=== PATIENT | male | born 1945 | race Caucasian/White ===

== ENCOUNTER 2018-03-17 12:29 | Observation (INO) | payer OTHER, MEDICARE ==
[~2018-03-17] VITALS: Ht 185.4 cm; Wt 104.7 kg
[~2018-03-17 12:29] MED LIST: ASPI81EC PO; DIPASPER PO; EZET10 PO; OMEP20ER PO
[2018-03-17] MEDS ORDERED: ASPI81CH PO (12:43)
[2018-03-17] MEDS ORDERED: ATEN25 PO (12:44)
[2018-03-17] MEDS ORDERED: PRAV20 PO (12:44)
[2018-03-17 17:11] LABS: BASOPHILS ABSOLUTE AUTO 0.02 K/mm3 (0.00-0.23); BASOPHILS PERCENT AUTO 0 % (0-2); EOSINOPHILS ABSOLUTE AUTO 0.02 K/mm3 (0.00-0.68); EOSINOPHILS PERCENT AUTO 0 % (0-6); Hematocrit 46.3 % (37.0-53.0); Hemoglobin 15.2 g/dL (13.5-17.5); IMMATURE GRAN ABSOLUTE AUTO 0.05 K/mm3 (0.00-0.10); IMMATURE GRAN PERCENT AUTO 0 % (0-1); LYMPHOCYTES ABSOLUTE AUTO 0.79 K/mm3 (0.84-5.20); LYMPHOCYTES PERCENT AUTO 5 % (21-46); MONOCYTES PERCENT AUTO 9 % (4-13); Mean Corpuscular HGB 32.5 pg (26.0-34.0); Mean Corpuscular HGB Conc 32.8 g/dL (31.5-36.5); Mean Corpuscular Volume 99 fL (80-100); Mean Platelet Volume 10.1 fL (9.1-12.4); NEUTROPHILS ABSOLUTE AUTO 12.91 K/mm3 (1.96-9.15); NEUTROPHILS PERCENT AUTO 85 % (41-73); Platelet Count 195 K/mm3 (150-400); RDW Coefficient Variation 11.6 % (11.7-14.2); RDW Standard Deviation 42.1 fL (35.1-46.3); Red Blood Cell Count 4.67 M/mm3 (4.30-5.90); White Blood Cell Count 15.19 K/mm3 (4.00-11.30)
[2018-03-17 17:44] LABS: Alanine Aminotransfer (ALT/SGP 152 U/L (12-78); Albumin/Globulin Ratio 1.1 (0.8-1.8); Alk Phos 102 U/L (50-136); Anion Gap 8 mmol/L (6-16); Aspartate Aminotrans (AST/SGOT 194 U/L (12-37); Blood Urea Nitrogen 12 mg/dL (8-24); Bun/Creatinine Ratio 17.3 (12.0-20.0); CO2, Blood 27 mmol/L (21-32); Calcium, Blood 8.8 mg/dL (8.5-10.1); Chloride, Blood 99 mmol/L (98-108); Globulin, Blood 3.7 g/dL (2.2-4.0); Glomerular Filtration Rate >60 (60-); Glucose, Blood 111 mg/dL (70-99); Potassium, Blood 3.9 mmol/L (3.5-5.5); Sodium, Blood 134 mmol/L (136-145); Total Protein, Blood 7.7 g/dL (6.4-8.2); Troponin I <0.015 ng/mL (0.000-0.040)
--- NOTE | 2018-03-17 17:51 | NUR ---
PT ADMITTED TODAY FROM ER. PT IS TO HAVE SURGERY TOMM. MORNING. PT WILL BE NPO @ MIDNIGHT. CURRRENTLY PT GIVEN CLEAR LIQUID DIET. (CHRIS) AT BEDSIDE , NAME AND NUMBER ON WHITE BOARD. ADMISSION COMPLETE. PT C/O PAIN X1 IN SHOULDER AND ABD, MEDICATED PER EMAR. WILL CTM UNTIL PRESUMED BY ONCOMING NURSE.
[2018-03-18 05:14] LABS: BASOPHILS ABSOLUTE AUTO 0.02 K/mm3 (0.00-0.23); BASOPHILS PERCENT AUTO 0 % (0-2); EOSINOPHILS PERCENT AUTO 0 % (0-6); Hematocrit 45.5 % (37.0-53.0); Hemoglobin 14.8 g/dL (13.5-17.5); IMMATURE GRAN ABSOLUTE AUTO 0.06 K/mm3 (0.00-0.10); IMMATURE GRAN PERCENT AUTO 0 % (0-1); LYMPHOCYTES ABSOLUTE AUTO 1.02 K/mm3 (0.84-5.20); LYMPHOCYTES PERCENT AUTO 7 % (21-46); MONOCYTES ABSOLUTE AUTO 1.63 K/mm3 (0.16-1.47); MONOCYTES PERCENT AUTO 11 % (4-13); Mean Corpuscular HGB 31.7 pg (26.0-34.0); Mean Corpuscular HGB Conc 32.5 g/dL (31.5-36.5); Mean Corpuscular Volume 97 fL (80-100); Mean Platelet Volume 10.3 fL (9.1-12.4); NEUTROPHILS ABSOLUTE AUTO 12.63 K/mm3 (1.96-9.15); NEUTROPHILS PERCENT AUTO 82 % (41-73); Platelet Count 204 K/mm3 (150-400); RDW Coefficient Variation 11.9 % (11.7-14.2); RDW Standard Deviation 43.2 fL (35.1-46.3); Red Blood Cell Count 4.67 M/mm3 (4.30-5.90); White Blood Cell Count 15.36 K/mm3 (4.00-11.30)
--- NOTE | 2018-03-18 05:17 | NUR ---
DID WELL DURING NIGHT. MEDICATED FOR ABD PAIN TWICE WITH FENTANYL. DENIES ANY N/V. PLAN FOR OR THIS AM FOR LAP KENYA. PLACE NEW 18G TO RFA. SURGICAL PACKET ON CHART. BLOOD CONSENT SIGNT. PT DOES TAKE ATENOLOL WILL REPORT THIS TO AM NURSE. PT IN BED WATCHING TV WITHOUT ANY C/O, CALL LIGHT IN REACH.
[2018-03-18 05:34] LABS: Alanine Aminotransfer (ALT/SGP 111 U/L (12-78); Albumin, Blood 3.5 g/dL (3.4-5.0); Albumin/Globulin Ratio 0.9 (0.8-1.8); Alk Phos 93 U/L (50-136); Anion Gap 5 mmol/L (6-16); Aspartate Aminotrans (AST/SGOT 63 U/L (12-37); Bilirubin, Total 2.5 mg/dL (0.1-1.0); Blood Urea Nitrogen 10 mg/dL (8-24); Bun/Creatinine Ratio 12.4 (12.0-20.0); CO2, Blood 26 mmol/L (21-32); Calcium, Blood 8.5 mg/dL (8.5-10.1); Chloride, Blood 107 mmol/L (98-108); Creatinine, Blood 0.81 mg/dL (0.60-1.20); Globulin, Blood 3.7 g/dL (2.2-4.0); Glomerular Filtration Rate >60 (60-); Glucose, Blood 115 mg/dL (70-99); Potassium, Blood 3.9 mmol/L (3.5-5.5); Sodium, Blood 138 mmol/L (136-145); Total Protein, Blood 7.2 g/dL (6.4-8.2)
--- NOTE | 2018-03-18 15:38 | NUR ---
History, Chart, Medications and Allergies reviewed before start of procedure.LUNGS DIMINISHED IN THE BASES.SATS>90% ON RA. PT STATES THAT IS HARD TO TAKE A FULL, DEEP BREATH DUE TO PAIN. PT REPORTS 4/10 RIGHT QUADRANT PAIN.NPO STAUS CONFIRMED.Pre-Op teaching done. Pt verbalizes understanding.
--- NOTE | 2018-03-18 16:22 | NUR ---
PT WENT FOR MRI TODAY TO CHECK FOR GALLSTONES. PT WENT FOR SURG TO REMOVE. MEDICATED FOR PAIN PER EMAR THROUGHOUT SHIFT. CURRENTLY IN SURG. WILL CTM UPON RETURN. WITH PT.
[2018-03-19 05:14] LABS: BASOPHILS ABSOLUTE AUTO 0.01 K/mm3 (0.00-0.23); BASOPHILS PERCENT AUTO 0 % (0-2); EOSINOPHILS PERCENT AUTO 0 % (0-6); Hematocrit 42.8 % (37.0-53.0); Hemoglobin 13.9 g/dL (13.5-17.5); IMMATURE GRAN ABSOLUTE AUTO 0.07 K/mm3 (0.00-0.10); IMMATURE GRAN PERCENT AUTO 0 % (0-1); LYMPHOCYTES ABSOLUTE AUTO 0.48 K/mm3 (0.84-5.20); LYMPHOCYTES PERCENT AUTO 3 % (21-46); MONOCYTES ABSOLUTE AUTO 1.09 K/mm3 (0.16-1.47); MONOCYTES PERCENT AUTO 7 % (4-13); Mean Corpuscular HGB 32.2 pg (26.0-34.0); Mean Corpuscular HGB Conc 32.5 g/dL (31.5-36.5); Mean Corpuscular Volume 99 fL (80-100); Mean Platelet Volume 10.5 fL (9.1-12.4); NEUTROPHILS PERCENT AUTO 90 % (41-73); Platelet Count 185 K/mm3 (150-400); RDW Coefficient Variation 11.9 % (11.7-14.2); RDW Standard Deviation 43.4 fL (35.1-46.3); Red Blood Cell Count 4.32 M/mm3 (4.30-5.90); White Blood Cell Count 16.45 K/mm3 (4.00-11.30)
[2018-03-19 05:37] LABS: Alanine Aminotransfer (ALT/SGP 103 U/L (12-78); Albumin, Blood 3.1 g/dL (3.4-5.0); Albumin/Globulin Ratio 0.8 (0.8-1.8); Alk Phos 112 U/L (50-136); Anion Gap 7 mmol/L (6-16); Aspartate Aminotrans (AST/SGOT 55 U/L (12-37); Bilirubin, Total 1.5 mg/dL (0.1-1.0); Blood Urea Nitrogen 15 mg/dL (8-24); Bun/Creatinine Ratio 20.2 (12.0-20.0); CO2, Blood 25 mmol/L (21-32); Calcium, Blood 8.5 mg/dL (8.5-10.1); Chloride, Blood 107 mmol/L (98-108); Creatinine, Blood 0.74 mg/dL (0.60-1.20); Globulin, Blood 3.7 g/dL (2.2-4.0); Glomerular Filtration Rate >60 (60-); Glucose, Blood 127 mg/dL (70-99); Potassium, Blood 4.3 mmol/L (3.5-5.5); Sodium, Blood 139 mmol/L (136-145); Total Protein, Blood 6.8 g/dL (6.4-8.2)
--- NOTE | 2018-03-19 07:36 | NUR ---
LYING IN SEMI FOWLERS WHILE WATCHING TV. AMBULATED TO BATHROOM WITH STANDBY ASSIST, TOLERATED WELL. NO FURTHER CHANGES SINCE START OF SHIFT. PAIN WELL MANAGED WITH PRN PO PAIN MEDS PER MD ORDERS. PT RESTED WELL THIS SHIFT. DENIES FURHTER NEEDS AT THIS TIME. SAFETY MEASURES IN PLACE. WILL GIVE HAND OFF TO ONCOMING SHIFT USING SBAR DURING BEDSIDE REPORT.
--- NOTE | 2018-03-19 08:00 | NUR ---
PT QUITE PLEASANT TALKATAIVE. A/O DENIES PAIN AT THIS TIME. LAP CHOLI PO DAY 1. 4 PUNCTURE SITES. COVERED WITH GAUZE AND TAPE. CDI. NO DRAINAGE. JOSE ROBERTO DRAIN IN PLACE RT QUADRANT. SMALL AMT OF SEROUS FLUID IN DRAIN. DR VELEZ IN TO SEE PT. STATES LOOKS GOOD. WILL REMOVE LATER THIS AM. THEN D/C PT. ;H/R REG, NO MURMER NOTED. NO TELE. LUNGS CLEAR, RESP EASY, UNLABORED. ON R.A. BT X4 LAST BM YEST. VOIDS PER BATHROOM. INDEPENDANT IN ROOM. BED IN LOW POSITION. CALL LITE IN REACH, CALLS APPROP
[2018-03-19] MEDS ORDERED: HYDR1TAB94 PO (12:26)
--- NOTE | 2018-03-19 13:40 | NUR ---
1300 DISCHARGE REVIEWED WITH PT. IV REMOVED INTACT. PT VERBALIZED INSTRUCTIONS AND MEDS. TO SET DESIGNER PT SHORTLY. 1330 WHEELED PT TO DOOR TO GO HOME. PT STEPPED TO CAR EASILY. SBA.
== END 2018-03-19 13:25 | disposition home or self-care (01) ==
LOC: ER 12:29 → SURS 12:30 → MEDS 12:30 → SURS 12:31 → MEDS 14:15 → ER 14:15 → SURS 14:15 → MEDS 15:05 → SURS 15:05
PROVIDERS: Surgery; ADMIT Internal Medicine
PROC: BF13YZZ Fluoroscopy of Gallbladder and Bile Ducts using Other Contrast (ICD-10-PCS; principal; 2018-03-18 13:55)
PROC: 0FT44ZZ Resection of Gallbladder, Percutaneous Endoscopic Approach (ICD-10-PCS; principal; 2018-03-18 13:55)
DX: K80.00 Calculus of gallbladder with acute cholecystitis without obstruction (principal); K82.A1 Gangrene of gallbladder in cholecystitis; E66.9 Obesity, unspecified; I10 Essential (primary) hypertension; E78.00 Pure hypercholesterolemia, unspecified; Z98.52 Vasectomy status; Z79.82 Long term (current) use of aspirin; Z88.8 Allergy status to other drugs, medicaments and biological substances; Z79.899 Other long term (current) drug therapy; Z87.891 Personal history of nicotine dependence; I25.10 Atherosclerotic heart disease of native coronary artery without angina pectoris; Z95.1 Presence of aortocoronary bypass graft
CPT/HCPCS: 36415; 74181; 74300; 80053; 84484; 85025; 88304; 93005; 93010; 96361; 96365; 96366; 96375; 96376; 99285; C1729; G0378; J1100; J1885; J2370; J2405; J2543; J3010; J7030; J7120

== ENCOUNTER 2021-04-05 14:12 | Emergency (ER) | payer MEDICARE, OTHER ==
[~2021-04-05] VITALS: Ht 188 cm; Wt 98.9 kg
[~2021-04-05 14:12] MED LIST changes: +ASPI81CH PO; +ATEN25 PO; +Crestor40 MG PO; +DULCOLAX5 MG PO; +FAMO10 PO; +HYDR1TAB94 PO; +PRAV20 PO; +VITAMIN D310 MC4 PO
[2021-04-05 14:48] LABS: BASOPHILS ABSOLUTE AUTO 0.02 K/mm3 (0.00-0.23); BASOPHILS PERCENT AUTO 0 % (0-2); EOSINOPHILS ABSOLUTE AUTO 0.16 K/mm3 (0.00-0.68); EOSINOPHILS PERCENT AUTO 2 % (0-6); Hematocrit 46.9 % (37.0-53.0); Hemoglobin 15.4 g/dL (13.5-17.5); IMMATURE GRAN ABSOLUTE AUTO 0.02 K/mm3 (0.00-0.10); IMMATURE GRAN PERCENT AUTO 0 % (0-1); LYMPHOCYTES ABSOLUTE AUTO 1.06 K/mm3 (0.84-5.20); LYMPHOCYTES PERCENT AUTO 12 % (21-46); MONOCYTES ABSOLUTE AUTO 0.63 K/mm3 (0.16-1.47); MONOCYTES PERCENT AUTO 7 % (4-13); Mean Corpuscular HGB 31.4 pg (26.0-34.0); Mean Corpuscular HGB Conc 32.8 g/dL (31.5-36.5); Mean Corpuscular Volume 96 fL (80-100); Mean Platelet Volume 9.9 fL (9.1-12.4); NEUTROPHILS ABSOLUTE AUTO 6.83 K/mm3 (1.96-9.15); NEUTROPHILS PERCENT AUTO 78 % (41-73); Platelet Count 244 K/mm3 (150-400); RDW Standard Deviation 42.5 fL (35.1-46.3); White Blood Cell Count 8.72 K/mm3 (4.00-11.30)
[2021-04-05 15:09] LABS: Alanine Aminotransfer (ALT/SGP 67 U/L (12-78); Albumin, Blood 4.1 g/dL (3.4-5.0); Albumin/Globulin Ratio 1.2 (0.8-1.8); Alk Phos 84 U/L (50-136); Anion Gap 7 mmol/L (6-16); Aspartate Aminotrans (AST/SGOT 41 U/L (12-37); Bilirubin, Total 1.3 mg/dL (0.1-1.0); Blood Urea Nitrogen 13 mg/dL (8-24); CO2, Blood 26 mmol/L (21-32); Calcium, Blood 9.2 mg/dL (8.5-10.1); Chloride, Blood 105 mmol/L (98-108); Creatinine, Blood 0.77 mg/dL (0.60-1.20); Globulin, Blood 3.4 g/dL (2.2-4.0); Glomerular Filtration Rate >60 (60-); Glucose, Blood 139 mg/dL (70-99); Potassium, Blood 3.9 mmol/L (3.5-5.5); Sodium, Blood 138 mmol/L (136-145); Total Protein, Blood 7.5 g/dL (6.4-8.2); Troponin I <0.015 ng/mL (0.000-0.040)
== END 2021-04-05 18:10 | disposition home or self-care (01) ==
LOC: ER 14:12
PROVIDERS: Physician Assistant
DX: R55 Syncope and collapse (principal); E78.5 Hyperlipidemia, unspecified; I10 Essential (primary) hypertension; Z87.891 Personal history of nicotine dependence; Z79.899 Other long term (current) drug therapy
CPT/HCPCS: 36415; 71046; 80053; 84484; 85025; 93005; 93010; 99284-25

== ENCOUNTER 2021-07-22 05:42 | Day surgery (SDC) | payer MEDICARE, OTHER ==
--- NOTE | 2021-07-22 07:18 | NUR ---
PT VERBALIZED UNDERSTANDING OF WRITTEN AND VERBAL D/C INST. PT AMB OUT OF THE [facility] /S DIFFICULY. -BLEEDING OR SWELLING L UPPER CHEST AREA.
== END 2021-07-22 07:30 | disposition home or self-care (01) ==
LOC: MHTC 05:42
DX: R55 Syncope and collapse (principal); I25.10 Atherosclerotic heart disease of native coronary artery without angina pectoris; Z95.1 Presence of aortocoronary bypass graft; Z87.891 Personal history of nicotine dependence; I10 Essential (primary) hypertension; E78.5 Hyperlipidemia, unspecified; Z79.82 Long term (current) use of aspirin; Z88.8 Allergy status to other drugs, medicaments and biological substances
CPT/HCPCS: 33285; C1764

== ENCOUNTER 2022-10-16 12:46 | Emergency (ER) | payer MEDICARE, OTHER ==
[~2022-10-16] VITALS: Ht 182.9 cm; Wt 130.6 kg
[2022-10-16 14:00] LABS: BASOPHILS ABSOLUTE AUTO 0.02 K/mm3 (0.00-0.23); BASOPHILS PERCENT AUTO 0 % (0-2); EOSINOPHILS ABSOLUTE AUTO 0.09 K/mm3 (0.00-0.68); EOSINOPHILS PERCENT AUTO 1 % (0-6); Hemoglobin 13.9 g/dL (13.5-17.5); IMMATURE GRAN ABSOLUTE AUTO 0.07 K/mm3 (0.00-0.10); IMMATURE GRAN PERCENT AUTO 1 % (0-1); LYMPHOCYTES ABSOLUTE AUTO 0.71 K/mm3 (0.84-5.20); LYMPHOCYTES PERCENT AUTO 9 % (21-46); MONOCYTES ABSOLUTE AUTO 0.67 K/mm3 (0.16-1.47); MONOCYTES PERCENT AUTO 8 % (4-13); Mean Corpuscular HGB 31.6 pg (26.0-34.0); Mean Corpuscular HGB Conc 33.1 g/dL (31.5-36.5); Mean Corpuscular Volume 96 fL (80-100); Mean Platelet Volume 9.9 fL (9.1-12.4); NEUTROPHILS ABSOLUTE AUTO 6.38 K/mm3 (1.96-9.15); NEUTROPHILS PERCENT AUTO 80 % (41-73); Platelet Count 229 K/mm3 (150-400); RDW Coefficient Variation 12.1 % (11.7-14.2); RDW Standard Deviation 42.5 fL (35.1-46.3); White Blood Cell Count 7.94 K/mm3 (4.00-11.30)
[2022-10-16 14:16] LABS: Calcium, Blood 8.8 mg/dL (8.5-10.1); Creatinine, Blood 0.79 mg/dL (0.60-1.20); Potassium, Blood 4.2 mmol/L (3.5-5.5)
[2022-10-16 15:30] VITALS: BP 142/69
== END 2022-10-16 16:30 | disposition home or self-care (01) ==
LOC: ER 12:46
PROVIDERS: Student in an Organized Health Care Education/Training Program
DX: R55 Syncope and collapse (principal); E78.5 Hyperlipidemia, unspecified; I10 Essential (primary) hypertension; I25.10 Atherosclerotic heart disease of native coronary artery without angina pectoris; Z45.09 Encounter for adjustment and management of other cardiac device; Z95.1 Presence of aortocoronary bypass graft; Z88.8 Allergy status to other drugs, medicaments and biological substances; Z79.899 Other long term (current) drug therapy; Z79.82 Long term (current) use of aspirin; Z87.891 Personal history of nicotine dependence
CPT/HCPCS: 80048; 85025; 93005; 93010; 93291; 99284-25

== ENCOUNTER 2022-11-19 01:00 | Emergency (ER) | payer OTHER ==
[~2022-11-19] VITALS: Ht 188 cm; Wt 99.8 kg
[2022-11-19] MEDS ORDERED: ROSU5 PO (01:29)
[2022-11-19] MEDS ORDERED: AMLO10 PO (01:30)
[2022-11-19] MEDS ORDERED: COQ-10100 MG PO (01:30)
[2022-11-19] MEDS ORDERED: LOSA25 PO (01:30)
[2022-11-19 01:43] LABS: BASOPHILS ABSOLUTE AUTO 0.03 K/mm3 (0.00-0.23); BASOPHILS PERCENT AUTO 0 % (0-2); EOSINOPHILS ABSOLUTE AUTO 0.07 K/mm3 (0.00-0.68); EOSINOPHILS PERCENT AUTO 1 % (0-6); Hematocrit 44.2 % (37.0-53.0); IMMATURE GRAN ABSOLUTE AUTO 0.03 K/mm3 (0.00-0.10); IMMATURE GRAN PERCENT AUTO 0 % (0-1); LYMPHOCYTES PERCENT AUTO 8 % (21-46); MONOCYTES ABSOLUTE AUTO 0.87 K/mm3 (0.16-1.47); MONOCYTES PERCENT AUTO 6 % (4-13); Mean Corpuscular HGB 31.4 pg (26.0-34.0); Mean Corpuscular HGB Conc 33.9 g/dL (31.5-36.5); Mean Corpuscular Volume 93 fL (80-100); Mean Platelet Volume 9.6 fL (9.1-12.4); NEUTROPHILS ABSOLUTE AUTO 11.57 K/mm3 (1.96-9.15); NEUTROPHILS PERCENT AUTO 85 % (41-73); Platelet Count 261 K/mm3 (150-400); RDW Coefficient Variation 11.9 % (11.7-14.2); RDW Standard Deviation 40.9 fL (35.1-46.3); Red Blood Cell Count 4.77 M/mm3 (4.30-5.90); White Blood Cell Count 13.67 K/mm3 (4.00-11.30)
[2022-11-19 02:03] LABS: Albumin, Blood 4.1 g/dL (3.4-5.0); Albumin/Globulin Ratio 1.2 (0.8-1.8); Bun/Creatinine Ratio 16.4 (12.0-20.0); Calcium, Blood 9.9 mg/dL (8.5-10.1); Creatinine, Blood 0.79 mg/dL (0.60-1.20); Globulin, Blood 3.3 g/dL (2.2-4.0); Potassium, Blood 3.8 mmol/L (3.5-5.5); Total Protein, Blood 7.4 g/dL (6.4-8.2)
[2022-11-19 04:30] VITALS: BP 121/70
== END 2022-11-19 04:55 | disposition home or self-care (01) ==
LOC: ER 01:00
PROVIDERS: Student in an Organized Health Care Education/Training Program
DX: R55 Syncope and collapse (principal); Z88.8 Allergy status to other drugs, medicaments and biological substances; Z79.899 Other long term (current) drug therapy; Z79.82 Long term (current) use of aspirin; E78.5 Hyperlipidemia, unspecified; I10 Essential (primary) hypertension; I25.10 Atherosclerotic heart disease of native coronary artery without angina pectoris; K21.9 Gastro-esophageal reflux disease without esophagitis; Z87.891 Personal history of nicotine dependence
CPT/HCPCS: 80053; 84484; 85025; 93005; 93010

== ENCOUNTER 2023-02-13 13:11 | Day surgery (SDC) | payer OTHER ==
[~2023-02-13] VITALS: Ht 188 cm; Wt 106.8 kg
[~2023-02-13 13:11] MED LIST changes: +AMLO10 PO; +LOSA25 PO; +ROSU5; +UBID100 PO; -VITAMIN D310 MC4 PO; +VITAMIN D31000 UNI1 PO
[2023-02-13] MEDS ORDERED: EZET10 PO (13:31)
--- NOTE | 2023-02-13 13:38 | NUR ---
02/13/23 1338 Isabel Foster AT 1338 PLEDGET AT 1341
[2023-02-13 14:42] VITALS: BP 134/71
--- NOTE | 2023-02-13 14:59 | NUR ---
02/13/23 1459 Asael Holt IV REMOVED INTACT. SITE WNL.
[2023-02-16] MEDS ORDERED: DOCU100 PO (15:29)
[2023-02-16] MEDS ORDERED: B-COMPLEX WITH1 EAC2 (15:31)
== END 2023-02-13 14:56 | disposition home or self-care (01) ==
LOC: ORSCSDS 13:11
PROVIDERS: Student in an Organized Health Care Education/Training Program
PROC: 08RJ3JZ Replacement of Right Lens with Synthetic Substitute, Percutaneous Approach (ICD-10-PCS; principal; 2023-02-13 14:30)
DX: H25.11 Age-related nuclear cataract, right eye (principal); H52.201 Unspecified astigmatism, right eye; H21.81 Floppy iris syndrome; I25.10 Atherosclerotic heart disease of native coronary artery without angina pectoris; I10 Essential (primary) hypertension; E78.5 Hyperlipidemia, unspecified; Z79.82 Long term (current) use of aspirin; Z79.899 Other long term (current) drug therapy; Z87.891 Personal history of nicotine dependence
CPT/HCPCS: J2250; J3010; J7040; V2632

== ENCOUNTER 2023-02-27 07:06 | Day surgery (SDC) | payer OTHER ==
[~2023-02-27] VITALS: Ht 188 cm; Wt 106.9 kg
[~2023-02-27 07:06] MED LIST changes: +B-COMPLEX WITH1 EAC2; +DOCU100 PO
--- NOTE | 2023-02-27 07:30 | NUR ---
02/27/23 0730 Manish Patel CALL LIGHT WITHIN REACH. TETRACAINE AT 0726 IN THE LEFT EYE AND PLEDGETT IN AT 0727
[2023-02-27 08:44] VITALS: BP 116/86
== END 2023-02-27 08:55 | disposition home or self-care (01) ==
LOC: ORSCSDS 07:06
PROVIDERS: Student in an Organized Health Care Education/Training Program
PROC: 08RK3JZ Replacement of Left Lens with Synthetic Substitute, Percutaneous Approach (ICD-10-PCS; principal; 2023-02-27 08:30)
DX: H25.12 Age-related nuclear cataract, left eye (principal); H21.81 Floppy iris syndrome; Z96.1 Presence of intraocular lens; Z87.891 Personal history of nicotine dependence; I25.10 Atherosclerotic heart disease of native coronary artery without angina pectoris; I10 Essential (primary) hypertension; Z79.899 Other long term (current) drug therapy
CPT/HCPCS: J2001; J2250; J3010; J7040; V2632

== ENCOUNTER 2023-12-04 00:13 | Emergency (ER) | payer OTHER ==
[~2023-12-04] VITALS: Ht 188 cm; Wt 95.2 kg
[2023-12-04 00:49] LABS: BASOPHILS ABSOLUTE AUTO 0.02 K/mm3 (0.00-0.23); BASOPHILS PERCENT AUTO 0 % (0-2); EOSINOPHILS ABSOLUTE AUTO 0.31 K/mm3 (0.00-0.68); EOSINOPHILS PERCENT AUTO 3 % (0-6); Hematocrit 41.8 % (37.0-53.0); Hemoglobin 13.7 g/dL (13.5-17.5); IMMATURE GRAN ABSOLUTE AUTO 0.02 K/mm3 (0.00-0.10); IMMATURE GRAN PERCENT AUTO 0 % (0-1); LYMPHOCYTES PERCENT AUTO 8 % (21-46); MONOCYTES ABSOLUTE AUTO 1.13 K/mm3 (0.16-1.47); MONOCYTES PERCENT AUTO 11 % (4-13); Mean Corpuscular HGB 30.9 pg (26.0-34.0); Mean Corpuscular HGB Conc 32.8 g/dL (31.5-36.5); Mean Corpuscular Volume 94 fL (80-100); Mean Platelet Volume 9.7 fL (9.1-12.4); NEUTROPHILS PERCENT AUTO 77 % (41-73); Platelet Count 202 K/mm3 (150-400); RDW Coefficient Variation 12.1 % (11.7-14.2); RDW Standard Deviation 42.5 fL (35.1-46.3); Red Blood Cell Count 4.43 M/mm3 (4.30-5.90); White Blood Cell Count 10.08 K/mm3 (4.00-11.30)
[2023-12-04 01:03] LABS: Albumin, Blood 3.7 g/dL (3.4-5.0); Albumin/Globulin Ratio 1.2 (0.8-1.8); Bilirubin, Total 0.9 mg/dL (0.1-1.0); Bun/Creatinine Ratio 11.4 (12.0-20.0); Calcium, Blood 8.6 mg/dL (8.5-10.1); Creatinine, Blood 0.88 mg/dL (0.60-1.20); Potassium, Blood 3.7 mmol/L (3.5-5.5); Total Protein, Blood 6.7 g/dL (6.4-8.2)
[2023-12-04] MEDS ORDERED: NS 1,000 ML IV SCH (02:45)
[2023-12-04 04:00] VITALS: BP 134/66
== END 2023-12-04 04:32 ==
LOC: ER 00:13
PROVIDERS: Emergency Medicine
DX: R55 Syncope and collapse (principal); J02.9 Acute pharyngitis, unspecified; E78.5 Hyperlipidemia, unspecified; I10 Essential (primary) hypertension; K21.9 Gastro-esophageal reflux disease without esophagitis; Z68.27 Body mass index [BMI] 27.0-27.9, adult; Z87.891 Personal history of nicotine dependence; Z79.899 Other long term (current) drug therapy; Z79.82 Long term (current) use of aspirin; Z88.8 Allergy status to other drugs, medicaments and biological substances
CPT/HCPCS: 71046; 80053; 84484; 85025; 87081; 87430; 93005; 93010; 96360; 99285-25; J7030

== ENCOUNTER 2023-12-16 03:12 | Emergency (ER) | payer OTHER ==
[~2023-12-16] VITALS: Ht 188 cm; Wt 104.3 kg
[2023-12-16 04:05] LABS: BASOPHILS ABSOLUTE AUTO 0.03 K/mm3 (0.00-0.23); BASOPHILS PERCENT AUTO 0 % (0-2); EOSINOPHILS ABSOLUTE AUTO 0.14 K/mm3 (0.00-0.68); EOSINOPHILS PERCENT AUTO 1 % (0-6); Hematocrit 45.9 % (37.0-53.0); Hemoglobin 15.2 g/dL (13.5-17.5); IMMATURE GRAN ABSOLUTE AUTO 0.06 K/mm3 (0.00-0.10); IMMATURE GRAN PERCENT AUTO 1 % (0-1); LYMPHOCYTES ABSOLUTE AUTO 1.02 K/mm3 (0.84-5.20); LYMPHOCYTES PERCENT AUTO 8 % (21-46); MONOCYTES ABSOLUTE AUTO 0.95 K/mm3 (0.16-1.47); MONOCYTES PERCENT AUTO 7 % (4-13); Mean Corpuscular HGB 31.1 pg (26.0-34.0); Mean Corpuscular HGB Conc 33.1 g/dL (31.5-36.5); Mean Corpuscular Volume 94 fL (80-100); Mean Platelet Volume 9.5 fL (9.1-12.4); NEUTROPHILS ABSOLUTE AUTO 10.79 K/mm3 (1.96-9.15); NEUTROPHILS PERCENT AUTO 83 % (41-73); Platelet Count 286 K/mm3 (150-400); RDW Coefficient Variation 12.4 % (11.7-14.2); Red Blood Cell Count 4.88 M/mm3 (4.30-5.90); White Blood Cell Count 12.99 K/mm3 (4.00-11.30)
[2023-12-16 04:23] LABS: Albumin, Blood 4.1 g/dL (3.4-5.0); Albumin/Globulin Ratio 1.1 (0.8-1.8); Bun/Creatinine Ratio 13.6 (12.0-20.0); Calcium, Blood 9.5 mg/dL (8.5-10.1); Creatinine, Blood 0.89 mg/dL (0.60-1.20); Globulin, Blood 3.7 g/dL (2.2-4.0); Potassium, Blood 4.5 mmol/L (3.5-5.5); Total Protein, Blood 7.8 g/dL (6.4-8.2)
[2023-12-16] MEDS ORDERED: NS 1,000 ML IV SCH (08:15)
[2023-12-16 11:42] LABS: Source, Urine Clean Catch
[2023-12-16 11:55] LABS: Appearance, Urine Clear (Clear); Bilirubin, Urine Neg (Neg); Blood, Urine 5+ (Neg); Color, Urine Yellow (P-Yellow); Glucose Qualitative, Urine Neg (Neg); Ketones, Urine Neg (Neg); Leukocyte Esterase, Urine 1+ (Neg); Nitrite, Urine Neg (Neg); Protein, Urine 1+ (Neg); Urobilinogen, Urine NORM (Normal)
[2023-12-16 12:02] LABS: Bacteria Few /hpf; Red Blood Cells, Urine 25-50 /hpf (0-2); Renal Epithelial Rare /hpf (0-Rare); Squamous Epithelial Cells Rare /hpf (Few)
[2023-12-16 12:03] LABS: Hyaline Casts 0-2 /lpf (0-2)
[2023-12-16] MEDS ORDERED: TAMS.4ER PO (12:29)
[2023-12-16 12:45] VITALS: BP 130/67
== END 2023-12-16 12:55 | disposition home or self-care (01) ==
LOC: ER 03:12
PROVIDERS: Emergency Medicine
DX: I95.9 Hypotension, unspecified (principal); R55 Syncope and collapse; R33.9 Retention of urine, unspecified; E78.5 Hyperlipidemia, unspecified; I25.10 Atherosclerotic heart disease of native coronary artery without angina pectoris; I25.2 Old myocardial infarction; I10 Essential (primary) hypertension; Z88.8 Allergy status to other drugs, medicaments and biological substances; Z79.82 Long term (current) use of aspirin; Z79.899 Other long term (current) drug therapy; Z95.1 Presence of aortocoronary bypass graft; Z87.891 Personal history of nicotine dependence
CPT/HCPCS: 51702; 51798; 71046; 80053; 81001; 84484; 85025; 87086; 93005; 93010; 99285-25; J7030

== ENCOUNTER 2025-01-29 20:23 | Emergency (ER) | payer OTHER ==
[~2025-01-29] VITALS: Ht 188 cm; Wt 108.9 kg
[~2025-01-29 20:23] MED LIST changes: +TAMS.4ER PO
[2025-01-29] MEDS ORDERED: PRALUENT P150 MG/1 M UD (20:35)
[2025-01-29] MEDS ORDERED: ALFU10 PO (20:37)
[2025-01-29] MEDS ORDERED: FINA5 PO (20:37)
[2025-01-29 21:17] LABS: BASOPHILS ABSOLUTE AUTO 0.03 K/mm3 (0.00-0.23); BASOPHILS PERCENT AUTO 0 % (0-2); IMMATURE GRAN ABSOLUTE AUTO 0.02 K/mm3 (0.00-0.10); IMMATURE GRAN PERCENT AUTO 0 % (0-1); NRBC ABSOLUTE 0.00 K/mm3 (0.00-0.02); NRBC Auto 0.0 /100 WBC (0.0-0.2); RDW Coefficient Variation 11.9 % (11.7-14.2)
[2025-01-29 21:24] LABS: Alanine Aminotransfer (ALT/SGP 36.0 U/L (12-78); Albumin, Blood 4.1 g/dL (3.4-5.0); Albumin/Globulin Ratio 1.2 (0.8-1.8); Anion Gap 8.0 mmol/L (3-11); Aspartate Aminotrans (AST/SGOT 24.0 U/L (12-37); Bilirubin, Total 0.7 mg/dL (0.1-1.0); Blood Urea Nitrogen 13.0 mg/dL (8-24); CO2, Blood 27.0 mmol/L (21-32); Calcium, Blood 9.3 mg/dL (8.5-10.1); Chloride, Blood 106.0 mmol/L (98-108); Creatinine, Blood 0.75 mg/dL (0.60-1.20); Globulin, Blood 3.3 g/dL (2.2-4.0); Glucose, Blood 113.0 mg/dL (70-99); Potassium, Blood 3.9 mmol/L (3.5-5.5); Sodium, Blood 137.0 mmol/L (136-145); Total Protein, Blood 7.4 g/dL (6.4-8.2)
[2025-01-29 21:25] LABS: EOSINOPHILS ABSOLUTE AUTO 0.25 K/mm3 (0.00-0.68); EOSINOPHILS PERCENT AUTO 4 % (0-6); Hematocrit 45.6 % (37.0-53.0); Hemoglobin 15.1 g/dL (13.5-17.5); LYMPHOCYTES ABSOLUTE AUTO 1.33 K/mm3 (0.84-5.20); LYMPHOCYTES PERCENT AUTO 20 % (21-46); MONOCYTES ABSOLUTE AUTO 0.80 K/mm3 (0.16-1.47); MONOCYTES PERCENT AUTO 12 % (4-13); Mean Corpuscular HGB Conc 33.1 g/dL (31.5-36.5); Mean Corpuscular Volume 94 fL (80-100); NEUTROPHILS ABSOLUTE AUTO 4.36 K/mm3 (1.96-9.15); NEUTROPHILS PERCENT AUTO 64 % (41-73); RDW Standard Deviation 41.5 fL (35.1-46.3)
[2025-01-29 21:49] LABS: Platelet Count 247 K/mm3 (150-400)
[2025-01-29 22:30] VITALS: BP 188/98
== END 2025-01-29 22:55 | disposition home or self-care (01) ==
LOC: ER 20:23
PROVIDERS: Physician Assistant
DX: I10 Essential (primary) hypertension (principal); E78.5 Hyperlipidemia, unspecified; K21.9 Gastro-esophageal reflux disease without esophagitis; Z87.891 Personal history of nicotine dependence; Z88.8 Allergy status to other drugs, medicaments and biological substances; Z79.899 Other long term (current) drug therapy
CPT/HCPCS: 80053; 84484; 85025; 93005; 93010; 99283-25